=== PATIENT | male | born 1960 | race Two or more races ===

== ENCOUNTER 2019-09-17 14:57 | Inpatient (IN) | payer MEDICAID, OTHER ==
[~2019-09-17] VITALS: Ht 167.6 cm; Wt 77.6 kg
[2019-09-17 15:47] LABS: Basophils # (auto) 0.1 uL; Basophils % (auto) 0.4 % (0.0-2.0); Eosinophils # (auto) 0 uL; Hematocrit 46.9 % (41.0-53.0); Hemoglobin 16.2 g/dL (13.5-17.5); Lymphocytes # (auto) 1.4 uL; Lymphocytes % (auto) 9.6 % (10.0-50.0); Mean Corpuscular Hemoglobin 30.8 pg (28.0-32.0); Mean Corpuscular Hgb Conc. 34.6 g/dL (32.0-36.0); Mean Corpuscular Volume 89.2 fL (80.0-100.0); Monocytes # (auto) 0.5 uL; Monocytes % (auto) 3.7 % (0.0-12.0); Neutrophils # (auto) 12.5 uL; Neutrophils % (auto) 86.3 % (37.0-80.0); Nucleated Red Blood Cells % 0.1 %; Platelet Count (auto) 275 10^3/uL (140-450); Red Blood Cells 5.25 10^6/uL (4.5-5.90); Red Cell Distribution Width 13.2 % (11.8-14.3); White Blood Cell 14.5 10^3/uL (4.4-10.8)
[2019-09-17 16:06] LABS: Albumin 3.8 g/dL (3.4-5.0); BUN/Creatinine Ratio 18.9; Potassium 3.7 mmol/L (3.5-5.1)
[2019-09-17 16:09] LABS: Bilirubin, Total 0.9 mg/dL (0.2-1.0); Total Protein 7.7 g/dL (6.4-8.2)
[2019-09-17 18:45] LABS: Urine Bacteria NONE SEEN /hpf (None Seen); Urine Blood Negative /uL (Negative); Urine Mucus FEW (None Seen); Urine Specific Gravity 1.032 (1.001-1.035); Urine WBC 1 /hpf (0 - 3)
[2019-09-17] MEDS ORDERED: SODIUM CHLORIDE 0.9% 1,000 ML IV ONE (21:15)
[2019-09-17] MEDS ORDERED: cefTRIAXone 1GM/50ML D5W 50 ML IV ONE (21:15)
[2019-09-17] MEDS ORDERED: metroNIDAZOLE 500MG/100ML 100 ML IV ONE (21:15)
[2019-09-17] MEDS ORDERED: MORPHINE SULFATE 4 MG/ML SYR/VIAL IV ONE (21:30)
[2019-09-17] MEDS ORDERED: ONDANSETRON HCL 4 MG/2 ML VIAL IV ONE (21:30)
[2019-09-17 21:46] LABS: Alcohol, Urine < 3.0 mg/dL (0-5); Amphetamine Screen, Urine NEGATIVE (NEGATIVE); Barbiturate Scree,Urine NEGATIVE (NEGATIVE); Benzodiazephine Screen, Urine NEGATIVE (NEGATIVE); Cocaine Screen, Urine POSITIVE (NEGATIVE); Opiate Scree,Urine NEGATIVE (NEGATIVE); Phencyclidine Screen, Urine NEGATIVE (NEGATIVE)
[2019-09-17 21:53] LABS: Cannabinoid Screen, Urine POSITIVE (NEGATIVE)
[2019-09-17] MEDS ORDERED: SODIUM CHLORIDE 0.9% 1,000 ML IV SCH (21:56)
[2019-09-17] MEDS ORDERED: MORPHINE SULFATE 4 MG/ML SYR/VIAL IV PRN (22:00)
[2019-09-17] MEDS ORDERED: ACETAMINOPHEN 325 MG TAB PO PRN (22:00)
[2019-09-17] MEDS ORDERED: DOCUSATE SOD 100 MG CAP PO PRN (22:00)
[2019-09-17] MEDS ORDERED: ONDANSETRON HCL 4 MG/2 ML VIAL IV PRN (22:00)
[2019-09-17] MEDS ORDERED: OMEP20TA PO (23:45)
[2019-09-18 05:46] LABS: Basophils # (auto) 0.1 uL; Basophils % (auto) 0.5 % (0.0-2.0); Eosinophils # (auto) 0.1 uL; Hematocrit 43.5 % (41.0-53.0); Hemoglobin 14.9 g/dL (13.5-17.5); Lymphocytes # (auto) 2.6 uL; Lymphocytes % (auto) 25.1 % (10.0-50.0); Mean Corpuscular Hemoglobin 30.7 pg (28.0-32.0); Mean Corpuscular Hgb Conc. 34.3 g/dL (32.0-36.0); Mean Corpuscular Volume 89.5 fL (80.0-100.0); Monocytes # (auto) 0.8 uL; Monocytes % (auto) 7.3 % (0.0-12.0); Neutrophils # (auto) 6.8 uL; Neutrophils % (auto) 66.1 % (37.0-80.0); Nucleated Red Blood Cells % 0.1 %; Platelet Count (auto) 246 10^3/uL (140-450); Red Blood Cells 4.86 10^6/uL (4.5-5.90); Red Cell Distribution Width 13.5 % (11.8-14.3); White Blood Cell 10.3 10^3/uL (4.4-10.8)
[2019-09-18 05:55] VITALS: BP 91/60
[2019-09-18 06:10] LABS: Potassium 3.8 mmol/L (3.5-5.1)
[2019-09-18 06:25] LABS: Calcium 8.4 mg/dL (8.5-10.1)
[2019-09-18 09:00] VITALS: BP 96/65
[2019-09-18] MEDS: SOD CHL 0.45% WITH 20MEQ KCL 1,000 ML IV SCH ×2 (11:31→22:08)
[2019-09-18] MEDS ORDERED: FAMOTIDINE (10MG/ML) 2ML VL IV ONE (11:45)
[2019-09-18 11:55] LABS: INR 1.07 (0.9-1.15); Partial Thromboplastin Time 29.2 sec (23.64-32.05)
[2019-09-18 13:00] VITALS: BP 91/59
[2019-09-18] MEDS: metroNIDAZOLE 500MG/100ML 100 ML IV SCH ×2 (14:00→22:00)
[2019-09-18] MEDS ORDERED: POVIDONE IODINE 10 % TOPICAL OINT 30GM TOP ONE (14:33)
[2019-09-18] MEDS ORDERED: ceFAZolin 1GM/50ML 50 ML IV ONE (14:41)
[2019-09-18] MEDS ORDERED: fentaNYL CITRATE 100 MCG/2 ML VL ONE (14:52)
[2019-09-18] MEDS ORDERED: ROCURONIUM 10MG/ML 10ML VIAL IV ONE (14:53)
[2019-09-18] MEDS ORDERED: PROPOFOL 10 MG/ML 20 ML IV ONE (14:57)
[2019-09-18] MEDS ORDERED: MORPHINE SULFATE 4 MG/ML SYR/VIAL IV PRN (15:45)
[2019-09-18] MEDS ORDERED: ePHEDrine SULFATE 50 MG/ML AMP IV PRN (15:45)
[2019-09-18] MEDS ORDERED: ONDANSETRON HCL 4 MG/2 ML VIAL IV PRN (15:45)
[2019-09-18] MEDS ORDERED: hydrALAZINE HCL 20 MG/ML VL IV PRN (15:45)
[2019-09-18] MEDS ORDERED: MORPHINE SULF INJ 2 MG/ML SYRINGE 1ML ONE (15:59)
[2019-09-18] MEDS: HYDROcodone-ACET 5/325MG TAB PO PRN ×2 (18:31→22:19)
[2019-09-18 20:00] VITALS: BP 107/73
[2019-09-18] MEDS: FAMOTIDINE (10MG/ML) 2ML VL IV SCH (21:59)
[2019-09-18 22:00] VITALS: BP 107/73
[2019-09-19 05:20] VITALS: BP 103/66
[2019-09-19] MEDS: metroNIDAZOLE 500MG/100ML 100 ML IV SCH (06:20)
[2019-09-19 09:00] VITALS: BP 95/59
[2019-09-19] MEDS ORDERED: cefTRIAXone 1GM/50ML D5W 50 ML IV SCH (09:00)
[2019-09-19] MEDS: SOD CHL 0.45% WITH 20MEQ KCL 1,000 ML IV SCH (09:20)
[2019-09-19] MEDS: FAMOTIDINE (10MG/ML) 2ML VL IV SCH (09:20)
[2019-09-19] MEDS ORDERED: CIPROFLOXACIN HCL 500 MG TAB PO SCH (10:00)
[2019-09-19] MEDS ORDERED: CIP500T PO (13:14)
[2019-09-19] MEDS ORDERED: MET500T PO (13:14)
[2019-09-19] MEDS ORDERED: PANT40TA2 PO (13:14)
[2019-09-19] MEDS ORDERED: metroNIDAZOLE 500 MG TAB PO SCH (14:00)
== END 2019-09-19 16:40 | disposition home or self-care (01) | DRG 234 ==
LOC: ER 15:00 → OVERFLOW 15:01 → WEST WING 23:08
PROVIDERS: ADMIT Hospitalist; ATTEND Internal Medicine
PROC: 0DTJ4ZZ Resection of Appendix, Percutaneous Endoscopic Approach (ICD-10-PCS; principal; 2019-09-18 14:46)
DX: K35.80 Unspecified acute appendicitis (principal); R65.10 Systemic inflammatory response syndrome (SIRS) of non-infectious origin without acute organ dysfunction; K21.9 Gastro-esophageal reflux disease without esophagitis; F14.10 Cocaine abuse, uncomplicated; Z83.3 Family history of diabetes mellitus; K44.9 Diaphragmatic hernia without obstruction or gangrene; Z87.11 Personal history of peptic ulcer disease
CPT/HCPCS: 36415; 71045; 74176; 80048; 80053; 80307; 81001; 83690; 85025; 85610; 85730; 86850; 86900; 86901; 93005; 96361; 96365; 96367; 96375; G0378; J0690; J0696; J2405; J2704; J3490